=== PATIENT | male | born 1980 | race Caucasian/White ===

== ENCOUNTER 2023-03-22 23:27 | Emergency (ER) | payer OTHER, SELFPAY ==
[2023-03-22 23:38] VITALS: BP 137/96; PULSE 110; RESP 16; TEMP 37; O2SAT 97
--- NOTE | 2023-03-22 23:57 | ED.WOUNDLAC ---
HPI - Wound/Laceration General Time Seen by Provider: 23:57 Date Seen: 03/22/23 Chief Complaint: Laceration/Wound Stated Complaint: needs stitches - left forehead Time Seen by Provider: 03/22/23 23:55 Source: patient, RN notes reviewed, old records reviewed and other (Friend) Mode of arrival: ambulatory Limitations: other (Alcohol intoxication) History of Present Illness HPI narrative: 42-year-old male who comes in today with scalp laceration. Drinking alcohol tonight, fell and hit the edge of a trailer. No loss of consciousness, no other injuries. Related Data Home Medications Medication Instructions Recorded Confirmed No Known Home Medications 03/22/23 03/22/23 Allergies Allergy/AdvReac Type Severity Reaction Status Date / Time No Known Drug Allergies Allergy Verified 03/22/23 23:41 Exam Narrative: Exam Narrative: General: Well-developed and well-nourished, no acute distress Head: 4 cm vertical laceration of the left side of the forehead Eyes: Pupils are equal reactive, extraocular motions intact, conjunctiva clear ENT: External nose and ears are normal, posterior pharynx without erythema or exudate Neck: No midline cervical tenderness, full spontaneous range of motion the neck, trachea midline, no adenopathy Heart: Regular rate and rhythm no murmurs or thrills Lungs: Clear to auscultation bilaterally without wheezes or crackles Abdomen: Soft, nontender, nondistended with active bowel sounds Musculoskeletal: No tenderness, deformity, or edema Neurologic: Awake, alert, and oriented x3, no gross focal neurologic deficits, cranial nerves intact as tested Psych: Mood and affect are appropriate Skin: No rashes Const: Vital Signs, click to edit/add: Vital Signs - 24 hr 03/22/23 23:38 Temperature 98.6 F Pulse Rate [Pulse Oximeter] 110 H Respiratory Rate 16 Blood Pressure [Ri ght Upper Arm] 137/96 H Pulse Oximetry 97 Course Course Hospital Course: Patient seen and examined, prior records reviewed. Patient presents today with a scalp laceration, intoxicated. On exam, no midline cervical tenderness, full spontaneous range of motion the neck. 4 cm vertical laceration of the left side of the forehead which will need to be repaired. Recommended head CT as well which patient declines, discussed head injury precautions with friend who is with him and will be staying with him tonight. Laceration repair 4 cm left forehead not involving the eyebrow, full-thickness, straight. Risks and benefits discussed with patient, verbal consent was obtained. Lidocaine 1% with epinephrine was injected along the wound edges, 3 mL total. Wound was cleansed with wound cleanser and explored, no foreign bodies are seen. Laceration was closed with 5-0 Ethilon running suture. Patient tolerated this well, discussed wound care. Vital Signs Vital signs: Initial Vital Signs Temperature 98.6 F 03/22/23 23:38 Temperature Source Temporal Artery Scan 03/22/23 23:38 Pulse Rate 110 H 03/22/23 23:38 Respiratory Rate 16 03/22/23 23:38 Blood Pressure 137/96 H 03/22/23 23:38 Blood Pressure Mean 109 H 03/22/23 23:38 Pulse Oximetry 97 03/22/23 23:38 Vital Signs Temperature 98.6 F 03/22/23 23:38 Pulse Rate 110 H 03/22/23 23:38 Respiratory Rate 16 03/22/23 23:38 Blood Pressure 137/96 H 03/22/23 23:38 Pulse Oximetry 97 03/22/23 23:38 Temperature 98.6 F 03/22/23 23:38 Pulse Rate 110 H 03/22/23 23:38 Respiratory Rate 16 03/22/23 23:38 Blood Pressure 137/96 H 03/22/23 23:38 Pulse Oximetry 97 03/22/23 23:38 Discharge Plan Discharge Clinical Impression: Alcohol intoxication, Forehead laceration Patient Disposition: Home w/ Parent or Adult Condition: Stable Instructions: Laceration (ED) Additional Instructions: Sutures should be removed in about 7 days, follow-up with your primary care doctor or in the emergency department for this Wash gently with soap and water after 24 hours, do not submerge until after sutures removed. Tylenol ibuprofen as needed for pain. Activity Level: No Restrictions Discharge Diet: Regular Prescriptions: No Action No Known Home Medications Stand Alone Forms: [employer] Info Instructions
[2023-03-23] MEDS: TETANUS/DIPHTH/PERTUSSIS 0.5 ML SYRINGE IM (00:05)
== END 2023-03-23 00:20 | disposition home or self-care (01) ==
LOC: ED 03-23 00:15
PROVIDERS: Emergency Provider Family Medicine
DX: S01.81XA Laceration without foreign body of other part of head, initial encounter (principal); W01.198A Fall on same level from slipping, tripping and stumbling with subsequent striking against other object, initial encounter; F10.129 Alcohol abuse with intoxication, unspecified
CPT/HCPCS: 12002; 90471; 90715; 99284